=== PATIENT | female | born 1935 | race Caucasian/White ===

== ENCOUNTER 2017-08-28 13:51 | Inpatient (IN) | payer MEDICARE, BC ==
[~2017-08-28] VITALS: Ht 167.6 cm; Wt 41.6 kg
[~2017-08-28 13:51] MED LIST: ARIC10TA PO; ATOR10 PO; BLOOD PRESSURE PILL PO; FENT75DI TD; MACR100C PO; MORP10IN2 PO; PROZ20CA11 PO; SOMA350T PO; TOPR50TA PO
[2017-08-28 14:15] VITALS: BP 183/84; PULSE 53; RESP 14; TEMP 97.6; O2SAT 99
[2017-08-28] MEDS ORDERED: SODIUM CHLORIDE 0.9% FLUSH 10 ML FLUSH IVF PRN (14:15)
[2017-08-28 14:17] VITALS: O2SAT 98
[2017-08-28] MEDS ORDERED: FENT100D T-DERMAL (14:17)
[2017-08-28] MEDS ORDERED: SOMA350T PO (14:17)
[2017-08-28] MEDS ORDERED: FLUO20CA12 PO (14:17)
[2017-08-28] MEDS ORDERED: LOSA25TA PO (14:17)
[2017-08-28] MEDS ORDERED: ALPR0.5T3 PO (14:17)
[2017-08-28] MEDS ORDERED: MORP5SYR PO (14:17)
[2017-08-28] MEDS ORDERED: FENT75DI T-DERMAL (14:17)
--- NOTE | 2017-08-28 14:22 | PD ---
HPI Chief Complaint: syncope Time Seen by Provider: 13:58 Travel History International Travel<30 days: No Contact w/Intl Traveler<30days: No History of Present Illness HPI 82 y/o female presents by ambulance after she had a witnessed syncopal event with her daughter that was assisting her showering per the medics. She did not hit her head they state and the daughter said she was out for a couple minutes. When the ambulance team arrived on scene she was initially hypotensive but this improved with IV fluids. The patient had no complaints in route. The patient currently denies any complaints and history is limited from patient at this time. PFSH Past Medical History Arthritis: Yes Asthma: No Autoimmune Disease: No Blood Disorders: No Anxiety: Yes Depression: Yes Heart Rhythm Problems: No Cancer: No Cardiovascular Problems: Yes High Cholesterol: Yes Chemotherapy: No Chest Pain: No Congestive Heart Failure: No COPD: No Dementia: Yes Diabetes: No Diminished Hearing: No Endocrine: No Gastrointestinal Disorders: Yes (IRRITABLE BOWEL SYNDROME) GERD: No Glaucoma: Yes Genitourinary: Yes Headaches: Yes Hepatitis: No Hiatal Hernia: No Hypertension: Yes Immune Disorder: No Implanted Vascular Access Dvce: Yes Kidney Stones: Yes (HX OF ) Musculoskeletal: Yes (MULTIPLE BACK AND HIP SURGERIES) Neurologic: Yes Psychiatric: Yes Reproductive: Yes ([facility]ARDO) Respiratory: No Myocardial Infarction: No Radiation Therapy: No Renal Failure: No Seizures: Yes Sickle Cell Disease: No Sleep Apnea: No Thyroid Disease: No Ulcer: No Menopausal: Yes Past Surgical History AICD: No Appendectomy: No Arteriovenous Shunt: No Body Medical Devices: LEGALLY BLIND Cholecystectomy: No Eye Surgery: Yes (LEFT EYE SX AT 5YRS OLD) Gynecologic Surgery: Yes ([facility]ARDO) Hysterectomy: Yes Insulin Pump: No Joint Replacement: Yes (LEFT HIP WITH REVISIONS ) Neurologic Surgery: Yes (SEVERAL BACK SX) Pacemaker: No Other Surgery: Yes Family History Family Hypercholesterolemia: Yes Social History Alcohol Use: Yes (1 DRINK DAILY) Tobacco Use: No Substance Use: No Allergies-Medications (Allergen,Severity, Reaction): Coded Allergies: No Known Allergies (Verified Allergy, Unknown, 08/28/17) Reported Meds & Prescriptions Reported Meds & Active Scripts Active Reported Morphine 5 mg/5 ml-0.9% NaCl (Morphine Sulfate/0.9% NaCl/Pf) 5 Mg/5 Ml (1 Mg/Ml ) Syringe 15 Mg PO BID Fentanyl Patch 72 HR (Fentanyl) 75 Mcg/Hr Patch 25 Mcg T-DERMAL Q72H Remove old patch when new one placed. Losartan (Losartan Potassium) 25 Mg Tab 25 Mg PO DAILY Alprazolam 0.5 Mg Tab 0.5 Mg PO Q4H PRN Soma (Carisoprodol) 350 Mg Tab 350 Mg PO BID PRN Fluoxetine (Fluoxetine HCl) 20 Mg Capsule 40 Mg PO DAILY Review of Systems ROS Limitations: Poor Historian Except as stated in HPI: all other systems reviewed are Neg Physical Exam Exam Limitations: Poor Historian Narrative GENERAL: thin, well-developed patient. SKIN: Warm and dry. HEAD: Normocephalic and atraumatic. EYES: glass eye on left. ENT: No nasal drainage noted. NECK: Supple, trachea midline. Nttp in midline CARDIOVASCULAR: Regular rate and rhythm RESPIRATORY: Breath sounds equal bilaterally at apices. No accessory muscle use. GASTROINTESTINAL: Abdomen soft, non-tender, nondistended. EXTREMITIES: No edema. NEUROLOGICAL: Awake and alert. moves all extremities and sensory grossly within normal limits. Normal speech. equal grasp bilaterally Data Data Last Documented VS Vital Signs Date Time Temp Pulse Resp B/P (MAP) Pulse Ox O2 Delivery O2 Flow Rate FiO2 08/28/17 15:50 51 16 185/80 (115) 97 Room Air 08/28/17 14:15 97.6 Orders Orders Electrocardiogram (08/28/17 14:09) Complete Blood Count With Diff (08/28/17 14:09) Comprehensive Metabolic Panel (08/28/17 14:09) Magnesium (Mg) (08/28/17 14:09) Ckmb (Isoenzyme) Profile (08/28/17 14:09) Troponin I (08/28/17 14:09) Act Partial Throm Time (Ptt) (08/28/17 14:09) Prothrombin Time / Inr (Pt) (08/28/17 14:09) Urinalysis - C+S If Indicated (08/28/17 14:09) Chest, Single Ap (08/28/17 14:09) Ct Brain W/O Iv Contrast(Rout) (08/28/17 14:09) Ecg Monitoring (08/28/17 14:09) Iv Access Insert/Monitor (08/28/17 14:09) Oximetry (08/28/17 14:09) Sodium Chloride 0.9% Flush (Ns Flush) (08/28/17 14:15) CKMB (08/28/17 14:10) CKMB% (08/28/17 14:10) Aspirin (Aspirin) (08/28/17 16:00) Admit Order (Ed Use Only) (08/28/17 16:19) Labs Laboratory Tests Test 08/28/17 14:10 08/28/17 14:40 White Blood Count 13.1 TH/MM3 Red Blood Count 3.62 MIL/MM3 Hemoglobin 12.2 GM/DL Hematocrit 36.6 % Mean Corpuscular Volume 101.2 FL Mean Corpuscular Hemoglobin 33.6 PG Mean Corpuscular Hemoglobin Concent 33.2 % Red Cell Distribution Width 13.8 % Platelet Count 262 TH/MM3 Mean Platelet Volume 9.7 FL Neutrophils (%) (Auto) 66.1 % Lymphocytes (%) (Auto) 26.6 % Monocytes (%) (Auto) 6.1 % Eosinophils (%) (Auto) 0.4 % Basophils (%) (Auto) 0.8 % Neutrophils # (Auto) 8.7 TH/MM3 Lymphocytes # (Auto) 3.5 TH/MM3 Monocytes # (Auto) 0.8 TH/MM3 Eosinophils # (Auto) 0.1 TH/MM3 Basophils # (Auto) 0.1 TH/MM3 CBC Comment DIFF FINAL Differential Comment Prothrombin Time 11.8 SEC Prothromb Time International Ratio 1.1 RATIO Activated Partial Thromboplast Time 24.6 SEC Blood Urea Nitrogen 12 MG/DL Creatinine 0.62 MG/DL Random Glucose 125 MG/DL Total Protein 6.6 GM/DL Albumin 3.4 GM/DL Calcium Level 7.9 MG/DL Magnesium Level 1.8 MG/DL Alkaline Phosphatase 58 U/L Aspartate Amino Transf (AST/SGOT) 69 U/L Alanine Aminotransferase (ALT/SGPT) 14 U/L Total Bilirubin 0.3 MG/DL Sodium Level 140 MEQ/L Potassium Level 3.6 MEQ/L Chloride Level 105 MEQ/L Carbon Dioxide Level 23.9 MEQ/L Anion Gap 11 MEQ/L Estimat Glomerular Filtration Rate 92 ML/MIN Total Creatine Kinase 494 U/L Creatine Kinase MB 45.5 NG/ML Creatine Kinase MB % 9.2 % Troponin I 21.50 NG/ML Urine Color LIGHT-YELLOW Urine Turbidity HAZY Urine pH 7.0 Urine Specific [place] 1.008 Urine Protein NEG mg/dL Urine Glucose (UA) NEG mg/dL Urine Ketones NEG mg/dL Urine Occult Blood NEG Urine Nitrite NEG Urine Bilirubin NEG Urine Urobilinogen LESS THAN 2.0 MG/DL Urine Leukocyte Esterase MOD Urine RBC LESS THAN 1 /hpf Urine WBC 1 /hpf Urine Mucus FEW /lpf Microscopic Urinalysis Comment CULT NOT INDICATED MDM Medical Decision Making Medical Screen Exam Complete: Yes Emergency Medical Condition: Yes Medical Record Reviewed: Yes (pmh confirmed) Interpretation(s) CBC & BMP Diagram 08/28/17 14:10 Total Protein 6.6, Albumin 3.4, Calcium Level 7.9 L, Magnesium Level 1.8, Alkaline Phosphatase 58, Aspartate Amino Transf (AST/SGOT) 69 H, Alanine Aminotransferase (ALT/SGPT) 14, Total Bilirubin 0.3 Last [address] 08/28/17 1409 Signed Impressions: Service Date/Time: Monday, August 28, 2017 14:29 - CONCLUSION: 1. No acute intracranial abnormality. 2. 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 3. 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 4. Senescent changes. James Schreiber MD Chest X-Ray 08/28/17 1409 Signed Impressions: Service Date/Time: Monday, August 28, 2017 14:56 - CONCLUSION: 1. No acute abnormality or significant interval change. James Schreiber MD troponin with significant elevation at 21.5 noted EKG with underlying artifact but no STEMI criteria, sinus bradycardia 54 Differential Diagnosis anemia, renal failure, vasovagal, uti, intracranial.... Narrative Course will check labs and imaging and reevaluate Patient's 2 daughters are here and state that patient has significant advanced dementia and they help take care of her. One daughter is the power of [employer] ground crew supervisor. She states that after lengthy discussion as of now she would like to keep her full code and admitted her to the hospital. In terms of procedure she states she wants to talk to the heart doctor to figure out if to do the intervention or not. She does not want to talk with hospice at this time. She was updated about all results and all questions answered at length. Patient will be given aspirin, no chest pain now heparin drip started after discussion with industrial cleaner, will place in cic Critical Care Narrative Aggregate critical care time was 31 minutes. Time to perform other separately billable procedures was not included in the critical care time. My time did not include minutes spent treating any other patients simultaneously or on activities that did not directly contribute to the patient's treatment. The services I provided to this patient were to treat and/or prevent clinically significant deterioration that could result in: mi, shock, I provided critical care services requiring my management, as noted below: Chart data review, documentation time, medication orders and management, vital sign assessments/reviewing monitor data, ordering and reviewing lab tests, ordering and interpreting/reviewing x-rays and diagnostic studies, care of the patient and discussion of the patient with the admitting physicians. Physician Communication Physician Communication dr robles will see patient dr bee agrees to admit dr robles after discussion with family states place on heparin drip no bolus and can eat Diagnosis Primary Impression: NSTEMI (non-ST elevation myocardial infarction) Additional Impression: Syncope Qualified Codes: R55 - Syncope and collapse Admitting Information Admitting Physician Requests: Admit Gris Perez MD Aug 28, 2017 14:22
--- NOTE | 2017-08-28 14:48 | RADRPT ---
EXAM DATE/TIME: 08/28/2017 14:29 [facility] COMPARISON: CT BRAIN W/O CONTRAST, April 18, 2014, 0:53. INDICATIONS : Syncope episode. RADIATION DOSE: 33.06 CTDIvol (mGy) MEDICAL HISTORY : Dementia. Seizures. Cardiovascular diseasehypertensiom SURGICAL HISTORY : Hysterectomy. ENCOUNTER: Initial ACUITY: 1 day PAIN SCALE: 0/10 LOCATION: cranial TECHNIQUE: Multiple contiguous axial images were obtained of the head. Using automated exposure control and adj ustment of the mA and/or kV according to patient size, radiation dose was kept as low as reasonably a chievable to obtain optimal diagnostic quality images. DICOM format image data is available electro nically for review and comparison. FINDINGS: CEREBRUM: Diffuse moderate cerebral atrophy. Encephalomalacia in the anterior and posterior parietal mid convex ities as well as redemonstration of encephalomalacia in the medial posterior occipital mid convexiti es. The ventricles are normal for degree of atrophy. No evidence of midline shift, mass lesion, hemo rrhage or acute infarction. No extra-axial fluid collections are seen. POSTERIOR FOSSA: The cerebellum and brainstem are intact. The 4th ventricle is midline. The cerebellopontine angle i s unremarkable. EXTRACRANIAL: The visualized portion of the orbits is intact. Redemonstration of apparent left eye enucleation. SKULL: The calvaria is intact. No evidence of skull fracture. CONCLUSION: 1. No acute intracranial abnormality. 2. 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 3. 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 4. Senescent changes. James Schreiber MD on August 28, 2017 at 14:41 Board Certified Radiologist. This report was verified electronically.
[2017-08-28 14:52] LABS: AUTOMATED NEUTROPHIL # 8.7 TH/MM3 (1.8-7.7); BASOPHIL # 0.1 TH/MM3 (0-0.2); BASOPHIL % 0.8 % (0.0-2.0); EOSINOPHIL # 0.1 TH/MM3 (0-0.4); EOSINOPHIL % 0.4 % (0.0-4.0); HEMATOCRIT 36.6 % (35.0-46.0); HEMO FLAGS DIFF FINAL; LYMPH % 26.6 % (9.0-44.0); LYMPHOCYTE # 3.5 TH/MM3 (1.0-4.8); MEAN CELL VOLUME 101.2 FL (80.0-100.0); MEAN CORPUSCULAR HEMOGLOBIN 33.6 PG (27.0-34.0); MEAN CORPUSCULAR HGB CONC 33.2 % (32.0-36.0); MONO % 6.1 % (0.0-8.0); NEUT % 66.1 % (16.0-70.0); PLATELET COUNT 262 TH/MM3 (150-450); RED BLOOD COUNT 3.62 MIL/MM3 (4.00-5.30); RED CELL DISTRIBUTION WIDTH 13.8 % (11.6-17.2); WHITE BLOOD COUNT 13.1 TH/MM3 (4.0-11.0)
[2017-08-28 14:55] LABS: APTT (PATIENT) 24.6 SEC (24.3-30.1); INTERNATIONAL NORMALIZED RATIO 1.1 RATIO; PROTHROMBIN TIME - PATIENT 11.8 SEC (9.8-11.6)
[2017-08-28 15:09] LABS: ANION GAP 11 MEQ/L (5-15); AST (GOT) 69 U/L (15-37); BICARBONATE 23.9 MEQ/L (21.0-32.0); BLOOD UREA NITROGEN 12 MG/DL (7-18); CHLORIDE 105 MEQ/L (98-107); GLOMERULAR FILTRATION RATE 92 ML/MIN (>89); MAGNESIUM 1.8 MG/DL (1.5-2.5); POTASSIUM 3.6 MEQ/L (3.5-5.1); SODIUM (NA) 140 MEQ/L (136-145)
[2017-08-28 15:11] LABS: ALT (GPT) 14 U/L (10-53)
[2017-08-28 15:15] LABS: ALKALINE PHOSPHATASE 58 U/L (45-117); CREATINE KINASE 494 U/L (26-192); TOTAL BILIRUBIN ADULT 0.3 MG/DL (0.2-1.0)
--- NOTE | 2017-08-28 15:16 | RADRPT ---
EXAM DATE/TIME: 08/28/2017 14:56 [facility] COMPARISON: CHEST SINGLE AP, April 18, 2014, 0:11. INDICATIONS : Syncopal episode today, short of breath, weakness MEDICAL HISTORY : None. SURGICAL HISTORY : back surgery , fusion ENCOUNTER: Initial ACUITY: 1 day PAIN SCORE: 2/10 LOCATION: Bilateral chest FINDINGS: A single view of the chest demonstrates the lungs to be symmetrically aerated without evidence of mas s, infiltrate or effusion. The cardiomediastinal contours are unremarkable. Lumbar fixation hardware in place with probable neural stimulator. Osseous structures are grossly intact. CONCLUSION: 1. No acute abnormality or significant interval change. James Schreiber MD on August 28, 2017 at 15:13 Board Certified Radiologist. This report was verified electronically.
[2017-08-28 15:28] LABS: BLOOD, URINE NEG (NEG); COMMENT (UR) CULT NOT INDICATED; CULTURE IF INDICATED CULT NOT INDICATED; GLUCOSE,URINE NEG (NEG); KETONE, URINE NEG (NEG); MUCUS URINE FEW /lpf (OCC); NITRITE,URINE NEG (NEG); URINE COLOR LIGHT-YELLOW (YELLW/STRAW)
[2017-08-28 15:30] LABS: CKMB 45.5 NG/ML (0.5-3.6)
[2017-08-28 15:50] VITALS: BP 185/80; PULSE 51; RESP 16; O2SAT 97
[2017-08-28] MEDS ORDERED: ASPIRIN 325 MG TAB PO ONE (16:00)
[2017-08-28 17:24] VITALS: BP 172/77; PULSE 54; RESP 14; O2SAT 98
[2017-08-28] MEDS: SODIUM CHLOR 0.9% 1000 ML INJ 1,000 ML IV SCH (18:00)
[2017-08-28] MEDS ORDERED: MORPHINE SULFATE 4 MG/ML INJ IV PUSH PRN ×4 (18:00)
[2017-08-28] MEDS ORDERED: BISACODYL 10 MG SUPP RECTAL PRN (18:00)
[2017-08-28] MEDS ORDERED: oxyCODONE/ACETAMINOPHEN 5 MG/325 MG TAB PO PRN (18:00)
[2017-08-28] MEDS ORDERED: NALOXONE HCL 0.4 MG/ML AMP IV PUSH PRN (18:00)
[2017-08-28] MEDS ORDERED: MAGNESIUM HYDROXIDE SUSP 30 ML CUP PO PRN (18:00)
[2017-08-28] MEDS ORDERED: ALPRAZolam 0.5 MG TAB PO PRN (18:00)
[2017-08-28] MEDS ORDERED: ONDANSETRON HCL 4 MG/2 ML VIAL IVP PRN (18:00)
[2017-08-28] MEDS ORDERED: SODIUM CHLORIDE 0.9% FLUSH 10 ML FLUSH IV FLUSH PRN (18:00)
[2017-08-28] MEDS ORDERED: oxyCODONE/ACETAMINOPHEN 10 MG/325 MG TAB PO PRN (18:00)
[2017-08-28] MEDS ORDERED: ACETAMINOPHEN 325 MG TAB PO PRN ×2 (18:00)
[2017-08-28] MEDS ORDERED: SENNOSIDES 8.6 MG TAB PO PRN (18:00)
[2017-08-28] MEDS ORDERED: PROCHLORPERAZINE 25 MG SUPP RECTAL PRN (18:00)
[2017-08-28] MEDS ORDERED: LACTULOSE SYRUP 20 GM/30 ML CUP PO PRN (18:00)
[2017-08-28 18:12] LABS: APTT (PATIENT) 27.6 SEC (24.3-30.1)
--- NOTE | 2017-08-28 18:18 | HHI.HP ---
[facility] Primary Care Physician Kevin Bowles DO Admission Diagnosis NSTEMI Diagnoses: (1) NSTEMI (non-ST elevation myocardial infarction) Diagnosis: Principal (2) Syncope Diagnosis: Principal (3) Back pain, chronic Diagnosis: Secondary (4) Alzheimer's dementia Diagnosis: Principal (5) Anxiety Diagnosis: Secondary (6) Depression Diagnosis: Secondary Chief Complaint: Syncope Travel History International Travel<30 Days: No Contact w/Intl Traveler <30 Da: No Traveled to Known Affected Are: No History of Present Illness Patient is an 82-year-old female who presented by ambulance after she had a witnessed syncopal episode while her daughter was trying to assist her while showering today. Patient did not hit her head and the daughter states she was out for a couple minutes possibly. When EMS team arrived on the scene she was initially hypotensive but this improved with IV fluids. Patient has no complaints on bruit. Patient denies any complaints in the room with the ER physician. Patient was found to have a quite elevated troponin at 21 Patient remains a full code at this time Cardiology has only wanted a heparin drip at this time and no aggressive cardiac treatment Will be placed in [facility] Review of Systems Constitutional: COMPLAINS OF: Weight loss, DENIES: Diaphoretic episodes, Fatigue, Fever, Weight gain, Chills, Dizziness, Change in appetite, Night Sweats Endocrine: DENIES: Abnorml menstrual pattern, Heat/cold intolerance, Polydipsia , Polyuria Eyes: DENIES: Blurred vision, Diplopia, Eye inflammation, Eye pain, Vision loss , Photosensitivity (left eye enucleation) Ears, nose, mouth, throat: DENIES: Tinnitus, Hearing loss, Vertigo, Nasal discharge Respiratory: DENIES: Apneas, Cough, Snoring, Wheezing, Hemoptysis Cardiovascular: COMPLAINS OF: Syncope, DENIES: Chest pain, Palpitations, Dyspnea on Exertion Gastrointestinal: DENIES: Abdominal pain, Black stools, Bloody stools Musculoskeletal: COMPLAINS OF: Joint pain, Back pain, Neck pain, DENIES: Muscle aches, Stiffness, Joint Swelling Integumentary: DENIES: Abnormal pigmentation, Pruritus, Rash Hematologic/lymphatic: DENIES: Bruising, Lymphadenopathy Immunologic/allergic: DENIES: Eczema Neurologic: COMPLAINS OF: Abnormal gait, Localized weakness, Poor Balance, DENIES: Headache, Paresthesias, Seizures, Tremor Psychiatric: COMPLAINS OF: Anxiety, Confusion, Depression, Agitation, DENIES: Mood changes Except as stated in HPI: all other systems reviewed are Neg Past Family Social History Past Medical History Osteoarthritis severe Anxiety Depression High cholesterol Advanced dementia Irritable bowel Alzheimer's dementia Glaucoma Chronic headaches Chronic urinary issues Hypertension History of kidney stones History of multiple back and hip surgeries History of total abdominal hysterectomy Past Surgical History Legally blind Left eye surgery at 5 years old enucleation Total abdominal hysterectomy Left hip surgery with multiple revisions Several back surgeries up to 14 Reported Medications Reported Meds & Active Scripts Active Reported Morphine 5 mg/5 ml-0.9% NaCl (Morphine Sulfate/0.9% NaCl/Pf) 5 Mg/5 Ml (1 Mg/Ml ) Syringe 15 Mg PO BID Fentanyl Patch 72 HR (Fentanyl) 75 Mcg/Hr Patch 25 Mcg T-DERMAL Q72H Remove old patch when new one placed. Losartan (Losartan Potassium) 25 Mg Tab 25 Mg PO DAILY Alprazolam 0.5 Mg Tab 0.5 Mg PO Q4H PRN Soma (Carisoprodol) 350 Mg Tab 350 Mg PO BID PRN Fluoxetine (Fluoxetine HCl) 20 Mg Capsule 40 Mg PO DAILY Allergies: Coded Allergies: No Known Allergies (Verified Allergy, Unknown, 08/28/17) Active Ordered Medications Current Medications Sodium Chloride (NS Flush) 2 ml UNSCH PRN IVF FLUSH AFTER USING IV ACCESS; Start 08/28/17 at 14:15 Aspirin (Aspirin) 325 mg ONCE ONCE PO Last administered on 08/28/17t 15:54; Start 08/28/17 at 16:00; Stop 08/28/17 at 16:01; Status DC Heparin Sodium (Porcine) (Heparin Inj) 5,000 units UNSCH PRN IV APTT LESS THAN 25; Start 08/28/17 at 23:15 Heparin Sodium (Porcine) (Heparin Inj) 2,500 units UNSCH PRN IV APTT 25 TO 39; Start 08/28/17 at 23:15 Heparin Sodium/ Dextrose 250 ml @ 10 mls/hr TITRATE PRN IV Coagulation Management; Start 08/28/17 at 17:15 Alprazolam (Xanax) 0.5 mg Q4H PRN PO ANXIETY; Start 08/28/17 at 18:00; Status UNV Carisoprodol (Soma) 350 mg BID PRN PO PAIN; Start 08/28/17 at 18:00; Status UNV Fentanyl (Duragesic 75 Mcg Patch.72 Hr) 1 patch Q72H T-DERMAL ; Start at 18:00; Status UNV Fluoxetine HCl (PROzac) 40 mg DAILY PO ; Start 08/29/17 at 09:00; Status UNV Losartan Potassium (Cozaar) 25 mg DAILY PO ; Start 08/29/17 at 09:00; Status UNV Non-Formulary Medication 15 mg BID PO ; Start 08/28/17 at 21:00; Status UNV Sodium Chloride 1,000 ml @ 100 mls/hr Q10H IV ; Start 08/28/17 at 17:48; Status UNV Sodium Chloride (NS Flush) 2 ml UNSCH PRN IV FLUSH FLUSH AFTER USING IV ACCESS ; Start 08/28/17 at 18:00; Status UNV Sodium Chloride (NS Flush) 2 ml BID IV FLUSH ; Start 08/28/17 at 21:00; Status UNV Acetaminophen (Tylenol) 650 mg Q4H PRN PO TEMP > 100.4; Start 08/28/17 at 18: 00; Status UNV Ondansetron HCl (Zofran Inj) 4 mg Q6H PRN IVP NAUSEA OR VOMITING; Start at 18:00; Status UNV Prochlorperazine (Compazine Supp) 25 mg Q12H PRN SC NAUSEA OR VOMITING; Start 08/28/17 at 18:00; Status UNV Acetaminophen (Tylenol) 650 mg Q6H PRN PO PAIN SCALE 1 TO 2; Start 08/28/17 at 18:00; Status UNV Oxycodone/ Acetaminophen (Percocet 5-325 Mg) 1 tab Q6H PRN PO PAIN SCALE 3 TO 5; Start 08/28/17 at 18:00; Status UNV Oxycodone/ Acetaminophen (Percocet 10-325 Mg) 1 tab Q6H PRN PO PAIN SCALE 6 TO 10; Start 08/28/17 at 18:00; Status UNV Morphine Sulfate (Morphine Inj) 2 mg Q3H PRN IV PUSH Pain 3-5; if unable to take PO; Start 08/28/17 at 18:00; Status UNV Morphine Sulfate (Morphine Inj) 4 mg Q3H PRN IV PUSH Pain 6-10;if unable to take PO; Start 08/28/17 at 18:00; Status UNV Morphine Sulfate (Morphine Inj) 4 mg Q1H PRN IV PUSH PAIN SCALE 7-10 ( INTRACTABLE); Start 08/28/17 at 18:00; Status UNV Morphine Sulfate (Morphine Inj) 4 mg Q3H PRN IV PUSH BREAKTHROUGH PAIN; Start 08/28/17 at 18:00; Status UNV Naloxone HCl (Narcan Inj) 0.4 mg UNSCH PRN IV PUSH SEE LABEL COMMENTS; Start 08/28/17 at 18:00; Status UNV Senna/Docusate Sodium (Ginger-Colace) 1 tab BID PO ; Start 08/28/17 at 21:00; Status UNV Magnesium Hydroxide (Milk Of Magnesia Liq) 30 ml Q12H PRN PO Mild constipation ; Start 08/28/17 at 18:00; Status UNV Sennosides (Senokot) 17.2 mg Q12H PRN PO Moderate constipation; Start at 18:00; Status UNV Bisacodyl (Dulcolax Supp) 10 mg DAILY PRN RECTAL SEVERE CONSITIPATION; Start 08/28/17 at 18:00; Status UNV Lactulose (Lactulose Liq) 30 ml DAILY PRN PO SEVERE CONSITIPATION; Start 08/28 at 18:00; Status UNV Family History Hypercholesterolemia Social History 1 alcoholic beverage daily Denies tobacco denies illicits Lives with daughter Physical Exam Vital Signs Vital Signs Date Time Temp Pulse Resp B/P (MAP) Pulse Ox O2 Delivery O2 Flow Rate FiO2 08/28/17 17:24 54 14 172/77 (108) 98 Room Air 08/28/17 15:50 51 16 185/80 (115) 97 Room Air 08/28/17 14:17 98 Room Air 08/28/17 14:15 97.6 53 14 183/84 (117) 99 Physical Exam GENERAL: This is a very thin cachectic patient in no apparent distress. And confused SKIN: No rashes, ecchymoses or lesions. Cool and dry. HEAD: Atraumatic. Normocephalic. No temporal or scalp tenderness. EYES: Pupils equal round and reactive. Extraocular motions intact. No scleral icterus. No injection or drainage. Left eye enucleation right eye disconjugate ENT: Nose without bleeding, purulent drainage or septal hematoma. Throat without erythema, tonsillar hypertrophy or exudate. Uvula midline. Airway patent. NECK: Trachea midline. No JVD or lymphadenopathy. Supple, nontender, no meningeal signs. CARDIOVASCULAR: Regular rate and rhythm without murmurs, gallops, or rubs. S1 and S2 no S3 or S4 no heave or thrill or rub or gallop RESPIRATORY: Clear to auscultation. Breath sounds equal bilaterally. No wheezes , rales, or rhonchi. GASTROINTESTINAL: Abdomen soft, non-tender, nondistended. No hepato-splenomegaly , or palpable masses. No guarding. MUSCULOSKELETAL: Extremities without clubbing, cyanosis, or edema. No joint tenderness, effusion, or edema noted. No calf tenderness. Negative Homans sign bilaterally. NEUROLOGICAL: Awake and alert and confused. Cranial nerves II through XII intact. Motor and sensory grossly within normal limits. 4 out of 5 muscle strength in all muscle groups. Limited speech. Insight and judgment is limited Mood and behavior is inappropriate Laboratory Laboratory Tests Test 08/28/17 14:10 08/28/17 14:40 08/28/17 17:45 White Blood Count 13.1 Red Blood Count 3.62 Hemoglobin 12.2 Hematocrit 36.6 Mean Corpuscular Volume 101.2 Mean Corpuscular Hemoglobin 33.6 Mean Corpuscular Hemoglobin Concent 33.2 Red Cell Distribution Width 13.8 Platelet Count 262 Mean Platelet Volume 9.7 Neutrophils (%) (Auto) 66.1 Lymphocytes (%) (Auto) 26.6 Monocytes (%) (Auto) 6.1 Eosinophils (%) (Auto) 0.4 Basophils (%) (Auto) 0.8 Neutrophils # (Auto) 8.7 Lymphocytes # (Auto) 3.5 Monocytes # (Auto) 0.8 Eosinophils # (Auto) 0.1 Basophils # (Auto) 0.1 CBC Comment DIFF FINAL Differential Comment Prothrombin Time 11.8 Prothromb Time International Ratio 1.1 Activated Partial Thromboplast Time 24.6 Blood Urea Nitrogen 12 Creatinine 0.62 Random Glucose 125 Total Protein 6.6 Albumin 3.4 Calcium Level 7.9 Magnesium Level 1.8 Alkaline Phosphatase 58 Aspartate Amino Transf (AST/SGOT) 69 Alanine Aminotransferase (ALT/SGPT) 14 Total Bilirubin 0.3 Sodium Level 140 Potassium Level 3.6 Chloride Level 105 Carbon Dioxide Level 23.9 Anion Gap 11 Estimat Glomerular Filtration Rate 92 Total Creatine Kinase 494 Creatine Kinase MB 45.5 Creatine Kinase MB % 9.2 Troponin I 21.50 Urine Color LIGHT-YELLOW Urine Turbidity HAZY Urine pH 7.0 Urine Specific [place] 1.008 Urine Protein NEG Urine Glucose (UA) NEG Urine Ketones NEG Urine Occult Blood NEG Urine Nitrite NEG Urine Bilirubin NEG Urine Urobilinogen LESS THAN 2.0 Urine Leukocyte Esterase MOD Urine RBC LESS THAN 1 Urine WBC 1 Urine Mucus FEW Microscopic Urinalysis Comment CULT NOT INDICATED Result Diagram: 08/28/17 1410 08/28/17 141 Imaging Last Impressions Head CT 08/28/17 140 Signed Impressions: Service Date/Time: Monday, August 28, 2017 14:29 - CONCLUSION: 1. No acute intracranial abnormality. 2. 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 3. 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 4. Senescent changes. James Schreiber MD Chest X-Ray 08/28/17 140 Signed Impressions: Service Date/Time: Monday, August 28, 2017 14:56 - CONCLUSION: 1. No acute abnormality or significant interval change. MD Harlan Torres VTE Risk Assessment Caprini VTE Risk Assessment: Mod/High Risk (score >= 2) Caprini Risk Assessment Model Point Value = 1 Point Value = 2 Point Value = 3 Point Value = 5 Age 41-60 Minor surgery BMI > 25 kg/m2 Swollen legs Varicose veins or History of unexplained or recurrent spontaneous Oral contraceptives or hormone replacement Sepsis (< 1 month) Serious lung disease, including pneumonia (< 1 month) Abnormal pulmonary function Acute myocardial infarction Congestive heart failure (< 1 month) History of inflammatory bowel disease Medical patient at bed rest Age 61-74 Arthroscopic surgery Major open surgery (> 45 min) Laparoscopic surgery (> 45 min) Malignancy Confined to bed (> 72 hours) Immobilizing plaster cast Central venous access Age >= 75 History of VTE Family history of VTE Factor V Leiden Prothrombin [id number] Lupus anticoagulant Anticardiolipin antibodies Elevated serum homocysteine Heparin-induced thrombocytopenia Other congenital or acquired thrombophilia Stroke (< 1 month) Elective arthroplasty Hip, pelvis, or leg fracture Acute spinal cord injury (< 1 month) Prophylaxis Regimen Total Risk Factor Score Risk Level Prophylaxis Regimen 0-1 Low Early ambulation 2 Moderate Order ONE of the following: *Sequential Compression Device (SCD) *Heparin 5000 units SQ BID 3-4 Higher Order ONE of the following medications: *Heparin 5000 units SQ TID *Enoxaparin/Lovenox 40 mg SQ daily (WT < 150 kg, CrCl > 30 mL/min) *Enoxaparin/Lovenox 30 mg SQ daily (WT < 150 kg, CrCl > 10-29 mL/min) *Enoxaparin/Lovenox 30 mg SQ BID (WT < 150 kg, CrCl > 30 mL/min) AND/OR *Sequential Compression Device (SCD) 5 or more Highest Order ONE of the following medications: *Heparin 5000 units SQ TID (Preferred with Epidurals) *Enoxaparin/Lovenox 40 mg SQ daily (WT < 150 kg, CrCl > 30 mL/min) *Enoxaparin/Lovenox 30 mg SQ daily (WT < 150 kg, CrCl > 10-29 mL/min) *Enoxaparin/Lovenox 30 mg SQ BID (WT < 150 kg, CrCl > 30 mL/min) AND *Sequential Compression Device (SCD) Assessment and Plan Assessment and Plan NSTEMI WITH ELEVATED TROPONIN OF 21- PER CARDIOLOGY MEDICAL MANAGEMENT AND CONTINUE HEPARIN DRIP SYNCOPE CONSULT CARDIO- ECHO AND PT AND OT DEMENTIA HOME MEDS CHRONIC PAIN CONTINUE HOME MEDS AND IV PAIN CONTROL AND MUSCLE RELAXERS ANXIETY AND DEPRESSION CONTINUE HOME MEDICATIONS CONSULT PALLIATIVE CARE CONSULT CASE MANAGEMENT CONSULT PT AND OT POSSIBLE HOSPICE CANDIDATE IN THE FUTURE LONG DISCUSSION WITH POA DAUGHTER- STILL WANTS FULL CODE Code Status FULL CODE Discussed Condition With PATIENT AND RN AND FAMILY AND POA AND ER PHYSICIAN Physician Certification 2 Midnight Certification Type: Admission for Inpatient Services Order for Inpatient Services The services are ordered in accordance with Medicare regulations or non- Medicare payer requirements, as applicable. In the case of services not specified as inpatient-only, they are appropriately provided as inpatient services in accordance with the 2-midnight benchmark. Estimated LOS (days): 3 3 days is the estimated time the patient will need to remain in the hospital, assuming treatment plan goals are met and no additional complications. Post-Hospital Plan: Not yet determined Problem Qualifiers (1) Syncope: Qualified Codes: R55 - Syncope and collapse Oseas oDn DO Aug 28, 2017 18:18
[2017-08-28] MEDS: HEPARIN-D5W 25,000 U/250 ML 250 ML IV PRN (18:34)
[2017-08-28 18:37] VITALS: BP 171/70; PULSE 52; RESP 16; O2SAT 98
[2017-08-28 20:00] VITALS: BP 144/79; PULSE 52; PULSE 65; RESP 20; TEMP 98.7; O2SAT 97
[2017-08-28] MEDS ORDERED: fentaNYL 75 MCG/HR PATCH T-DERMAL SCH (20:00)
[2017-08-28] MEDS ORDERED: REMOVE OLD DURAGESIC (FENTANYL) PATCH T-DERMAL SCH (20:00)
[2017-08-28] MEDS ORDERED: [UNRECOGNIZED DRUG - OTHER] PO SCH (21:00)
[2017-08-28] MEDS ORDERED: MORPHINE SULFATE PO SCH (21:00)
[2017-08-28] MEDS: DOCUSATE SODIUM 50 MG/SENNA 8.6 MG TAB PO SCH (22:31)
[2017-08-28] MEDS: SODIUM CHLORIDE 0.9% FLUSH 10 ML FLUSH IV FLUSH SCH (22:31)
[2017-08-28] MEDS: MORPHINE SULFATE 15 MG CONTROLLED RELEASE TAB PO SCH (22:31)
[2017-08-28] MEDS ORDERED: HEPARIN SODIUM - IV 10,000 UNITS/10 ML VIAL IV PRN ×2 (23:15)
[2017-08-28 23:22] LABS: CKMB 25.6 NG/ML (0.5-3.6)
[2017-08-29] VITALS (23 sets, daily range): BP systolic 106–138; BP diastolic 56–79; PULSE 61–82; RESP 18–20; TEMP 97.9–98.6; O2SAT 96–98
[2017-08-29 01:37] LABS: APTT (PATIENT) 142.4 SEC (24.3-30.1)
[2017-08-29 03:06] LABS: AUTOMATED NEUTROPHIL # 5.1 TH/MM3 (1.8-7.7); BASOPHIL # 0.1 TH/MM3 (0-0.2); BASOPHIL % 0.7 % (0.0-2.0); EOSINOPHIL % 0.3 % (0.0-4.0); HEMATOCRIT 33.7 % (35.0-46.0); HEMO FLAGS DIFF FINAL; LYMPH % 36.4 % (9.0-44.0); LYMPHOCYTE # 3.3 TH/MM3 (1.0-4.8); MEAN CELL VOLUME 98.9 FL (80.0-100.0); MEAN CORPUSCULAR HEMOGLOBIN 33.1 PG (27.0-34.0); MEAN CORPUSCULAR HGB CONC 33.5 % (32.0-36.0); MONO % 6.7 % (0.0-8.0); NEUT % 55.9 % (16.0-70.0); PLATELET COUNT 239 TH/MM3 (150-450); RED BLOOD COUNT 3.41 MIL/MM3 (4.00-5.30); RED CELL DISTRIBUTION WIDTH 13.2 % (11.6-17.2); WHITE BLOOD COUNT 9.2 TH/MM3 (4.0-11.0)
[2017-08-29 03:31] LABS: ALT (GPT) 18 U/L (10-53); ANION GAP 7 MEQ/L (5-15); AST (GOT) 46 U/L (15-37); BICARBONATE 30.4 MEQ/L (21.0-32.0); BLOOD UREA NITROGEN 11 MG/DL (7-18); CHLORIDE 104 MEQ/L (98-107); GLOMERULAR FILTRATION RATE 127 ML/MIN (>89); MAGNESIUM 1.9 MG/DL (1.5-2.5); SODIUM (NA) 141 MEQ/L (136-145)
[2017-08-29 03:32] LABS: APTT (PATIENT) 77.7 SEC (24.3-30.1)
[2017-08-29 03:39] LABS: ALKALINE PHOSPHATASE 64 U/L (45-117); CREATINE KINASE 245 U/L (26-192); FREE T4 0.84 NG/DL (0.76-1.46); TOTAL BILIRUBIN ADULT 0.4 MG/DL (0.2-1.0)
[2017-08-29 03:55] LABS: CKMB 16.6 NG/ML (0.5-3.6)
--- NOTE | 2017-08-29 06:46 | MB ---
cc: RENE JACOBS DO DATE OF CONSULTATION August 28, 2017 REASON FOR CONSULTATION Syncope. NSTEMI. HISTORY OF PRESENT ILLNESS Neha Hardin is a pleasantly demented 82-year-old female who presented to [facility] by EMS on August 28, 2017, after a syncopal episode. Her daughter was assisting her while in the shower and trying to clean her off when she started not feeling well. She sat down and then slumped over. At that time her daughter was unable to arouse her and so she should called 9-1-1. She was unsure if she was breathing at that time and she appeared to be drooling. She was finally able to wake her up around 5 minutes later. Upon EMS arrival, the patient was hypotensive but this improved with IV fluids. In seeing her in the emergency room she is currently hemodynamically stable and denies any symptoms. PAST MEDICAL HISTORY 1. Osteoarthritis. 2. Anxiety. 3. Depression. 4. Hyperlipidemia. 5. Advanced dementia. 6. Irritable bowel syndrome. 7. Alzheimer's dementia. 8. Glaucoma. 9. Hypertension. PAST SURGICAL HISTORY 1. Left eye surgery. 2. Total abdominal hysterectomy. 3. Left hip surgery with multiple revisions. 4. Several back surgeries. ALLERGIES No known drug allergies. MEDICATIONS 1. Soma 350 mg b.i.d. as needed for pain. 2. Losartan 25 mg daily. 3. Fentanyl 25 mcg patch. 4. Morphine 15 mg b.i.d. 5. Duloxetine 40 mg daily. 6. Xanax 0.5 mg every 4 hours as needed for anxiety. FAMILY HISTORY Denies premature coronary artery disease or sudden cardiac within the family. SOCIAL HISTORY Denies tobacco or drug abuse. Does drink one alcoholic drink a day. Currently lives with her daughter. REVIEW OF SYSTEMS 14-systems were reviewed including osteopathic pertinent positives and negatives above, otherwise negative. PHYSICAL EXAMINATION VITAL SIGNS: Temperature 97.6, heart rate 53, blood pressure 183/84, respirations 18, pulse ox 99% on room air. IN GENERAL: The patient is alert and awake, pleasantly demented. HEENT: Pupils are equal, round and reactive. Mucous membranes moist. NECK: Supple. No JVD at 45 degrees. No carotid bruits heard bilaterally. Carotid upstroke is brisk in nature. HEART: Regular rate and rhythm. Positive first and second heart sounds with no noted murmurs, gallops or rubs. LUNGS: Clear to auscultation bilaterally. No wheezes, rubs or rhonchi. ABDOMEN: Soft, nontender, nondistended. No organomegaly noted. EXTREMITIES: No clubbing, cyanosis or edema. Femoral and distal pulses intact bilaterally. NEUROLOGICALLY: No focal deficits. SKIN: Warm, dry and intact. OSTEOPATHIC: Mild kyphoscoliosis. No lordosis or paraspinal tender points. LABORATORY FINDINGS Hemoglobin 12.2, hematocrit 36.6, platelets 262, potassium 3.6, BUN 12, creatinine 0.62. Troponin 21.5. ELECTROCARDIOGRAM (August 28, 2017, at 14:22) Sinus bradycardia, nonspecific ST-T wave changes. IMPRESSION 1. NSTEMI. 2. Syncopal episode. 3. Advanced dementia. 4. Hyperlipidemia. RECOMMENDATIONS 1. Ms. Hardin presented with syncopal episode and was found to have an elevated troponin. 1. My overall concern with her is that during the episodes she was extremely hypotensive and the daughter was unsure if she was breathing. 2. She is currently hemodynamically stable and without chest pain. I had a long discussion with both her daughters (one of them being her POA) about medical management versus invasive route including cardiac catheterization. After discussing the risks, benefits and alternatives, the daughters agreed that we would try to treat her medically as best as possible due to her age and overall comorbidities with her dementia. 3. She does have accelerated hypertension and we will attempt to place her on medications to lower this, although carefully with her syncopal episode. 4. We will check a 2-D echo to look at her overall left ventricular function, cardiac structure and possible valvopathies. 5. Further recommendations will be made based on the hospital course. Thank you for allowing me to see Neha Hardin. If you have any questions, please do not hesitate to call. Rene Jacobs DO VGP/SSB /12:45 AM /6:31 AM [email or web address]
[2017-08-29] MEDS: LOSARTAN 25 MG TAB PO SCH (08:20)
[2017-08-29] MEDS: ASPIRIN 81 MG CHEW TAB CHEW SCH (08:21)
[2017-08-29] MEDS: MORPHINE SULFATE 15 MG CONTROLLED RELEASE TAB PO SCH ×2 (08:21→20:51)
[2017-08-29] MEDS: DOCUSATE SODIUM 50 MG/SENNA 8.6 MG TAB PO SCH ×2 (08:22→20:51)
[2017-08-29] MEDS: amLODIPine BESYLATE 5 MG TAB PO SCH (08:22)
[2017-08-29] MEDS: FLUoxetine HCL 20 MG CAP PO SCH (08:22)
[2017-08-29] MEDS: CARISOPRODOL 350 MG TAB PO PRN (08:24)
[2017-08-29] MEDS: SODIUM CHLORIDE 0.9% FLUSH 10 ML FLUSH IV FLUSH SCH (08:25)
[2017-08-29 08:35] LABS: APTT (PATIENT) 44.9 SEC (24.3-30.1)
--- NOTE | 2017-08-29 09:04 | EKG ---
Date Performed: 08/29/2017 Time Performed: 01:39:52 PTAGE: 82 years EKG: Possible ectopic atrial bradycardia Inferior infarct - age undetermined Inferior ST elevati on, consider acute injury Possible anteroseptal infarct - age undetermined Lateral T wave changes may be due to myocardial ischemia Abnormal ECG PREVIOUS TRACING : 08/28/2017 14.22 DOCTOR: Shane Veliz Interpretating Date/Time 08/29/2017 09:02:42
--- NOTE | 2017-08-29 09:58 | EKG ---
Date Performed: 08/28/2017 Time Performed: 14:22:46 PTAGE: 82 years EKG: SINUS BRADYCARDIA ABNORMAL QRS-T ANGLE ABNORMAL ECG INTERPRETATION BASED ON A DEFAULT AGE O F 41 YEARS PREVIOUS TRACING : 04/17/2014 23.56 DOCTOR: Shane Veliz Interpretating Date/Time 08/29/2017 09:56:56
--- NOTE | 2017-08-29 10:32 | PD.CONS ---
Consult Service Palliative Care Consult Requested By Dr Don Primary Care Physician Kevin Bowles, Reason for Consultation a. To assist with evaluation and management of symptoms including: Chronic back pain b. To assist medical decision maker(s) with: better understanding of current medical conditions; weighing benefits/burdens of medical treatment options; making medical treatment decisions. HPI History of Present Illness 82-year-old patient presented to the ED on 08/28/17 via EMS after a witnessed syncopal event. Her daughter was assisting her with showering. She is not reported to have hit her head daughter reported she was "out "for a couple minutes. When EMS arrived she was initially hypotensive but this improved with IV fluid. Patient had no other complaints, limited history. * ED: Head CT with no acute process is notable for stable old right occipital lobe infarct. Old right MCA territory infarcts new since 2013 exam. CXR with no acute process. Troponin elevated 21.5. EKG with artifact but no STEMI criteria, sinus bradycardia 50s. Patient presented with 2 daughters who report patient with advanced dementia they help care for her. One daughter is reported POA. ED physician notes lengthy discussion with them they requested to keep full code , would want to proceed with further evaluation and hospital admission . They wish to talk with dog races manager regarding possibility of interventions. They did not want to talk with hospice. Patient was started on heparin after discussion with dog races manager. No reported chest pain. Patient admitted for further evaluation and management. * Cardiology consulted: Cardiology has concern that during episodes of unresponsiveness patient was likely hypotensive and it is not known if patient was breathing. Cardiology notes discussion with daughters about medical management versus invasive management daughters agreed to proceed with medical management due to advanced age and comorbidities including dementia. 2-D echo ordered. * Palliative care consulted by medical attending to assist with clarification of goals of treatment, as well to assist with management of chronic pain. Cardiac enzymes trending down though still elevated. Patient vital signs stable. Patient seen in room no visitors present. Nursing informs daughter left for a few hours. Patient is alert, pleasant, cooperative. She is oriented x1-2. She knows she is in the hospital she tells me she is here for her back pain. She does not have insight into other medical conditions or hospitalization. Able to state her correct date of , however she tells me her current age is 69. She is unable to name current year. She is able to name one daughter Ebony, tells me she has other children though unable to tell me how many or their names. She tells me she is originally from [place], and previously worked as a schoolteacher. ROS is negative except for she endorses some back pain, she is unable to give a number however when rating " small medium or large" tells me a medium amount of pain. 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 She is originally from [place] Patient had a total of 7 children, 2 biological children the other 5 were stepchildren. Patient biological daughter Ebony is local she lives with patient. Patient lost biological son in a car accident. Patient lost another stepdaughter to cancer.] Following exam call to alicia Beck. . Function/Cognitive Trajectory Lives at home with daughter-dependent for all care. Able to make some needs known such as hunger. Still ambulatory short distances room to room with walker and daughter standby assist. Progressive dementia For the past several years. . Review of Systems ROS Limitations: Poor Historian (ROS essentially negative except for back pain though patient noted to be a poor historian secondary to dementia) Constitutional: COMPLAINS OF: Pain (back pain), DENIES: Fever, Change in appetite Eyes: COMPLAINS OF: Vision loss (legally blind) Ears, nose, mouth, throat: DENIES: Throat pain Respiratory: DENIES: Cough, Shortness of breath Cardiovascular: DENIES: Chest pain Gastrointestinal: DENIES: Nausea, Vomiting, Dyspepsia or heartburn Musculoskeletal: COMPLAINS OF: Joint pain (hip, chronic), Back pain (chronic) Integumentary: DENIES: Rash Neurologic: DENIES: Headache Psychiatric: COMPLAINS OF: Anxiety (per daughter), Confusion (chronic per daughter) Past Family Social History Coded Allergies: No Known Allergies (Verified Allergy, Unknown, 08/28/17) Past Medical History Legally blind, left eye enucleation Osteoarthritis severe Anxiety Depression High cholesterol Advanced dementia Irritable bowel Alzheimer's dementia Glaucoma Chronic headaches Chronic urinary issues Hypertension History of kidney stones History of multiple back and hip surgeries . Past Surgical History Legally blind--Left eye surgery at 5 years old enucleation Total abdominal hysterectomy Left hip surgery with multiple revisions Several back surgeries up to 16 Reported Medications Morphine 5 mg/5 ml-0.9% NaCl (Morphine Sulfate/0.9% NaCl/Pf) 5 Mg/5 Ml (1 Mg/Ml ) Syringe 15 Mg PO BID Fentanyl Patch 72 HR (Fentanyl) 75 Mcg/Hr Patch 25 Mcg T-DERMAL Q72H Remove old patch when new one placed. Losartan (Losartan Potassium) 25 Mg Tab 25 Mg PO DAILY Alprazolam 0.5 Mg Tab 0.5 Mg PO Q4H PRN Soma (Carisoprodol) 350 Mg Tab 350 Mg PO BID PRN Fluoxetine (Fluoxetine HCl) 20 Mg Capsule 40 Mg PO DAILY . Current Medications Medications (Trade) Dose Ordered Sig/Roverto Route Start Time Stop Time Status Last Admin (Heparin Inj) 5,000 units UNSCH PRN IV 08/28/17 23:15 (Heparin Inj) 2,500 units UNSCH PRN IV 08/28/17 23:15 08/28/17 18:31 Heparin Sodium/ Dextrose 250 ml @ 10 mls/hr TITRATE PRN IV 08/28/17 17:15 08/28/17 18:34 (Xanax) 0.5 mg Q4H PRN PO 08/28/17 18:00 (Soma) 350 mg BID PRN PO 08/28/17 18:00 08/29/17 08:24 (Duragesic 75 Mcg Patch.72 Hr) 1 patch Q72H T-DERMAL 08/28/17 20:00 (PROzac) 40 mg DAILY PO 08/29/17 09:00 08/29/17 08:22 (Cozaar) 25 mg DAILY PO 08/29/17 09:00 08/29/17 08:20 Sodium Chloride 1,000 ml @ 100 mls/hr Q10H IV 08/28/17 18:00 08/28/17 18:00 (NS Flush) 2 ml UNSCH PRN IV FLUSH 08/28/17 18:00 (NS Flush) 2 ml BID IV FLUSH 08/28/17 21:00 08/28/17 22:31 (Tylenol) 650 mg Q4H PRN PO 08/28/17 18:00 (Zofran Inj) 4 mg Q6H PRN IVP 08/28/17 18:00 (Compazine Supp) 25 mg Q12H PRN RECTAL 08/28/17 18:00 (Tylenol) 650 mg Q6H PRN PO 08/28/17 18:00 (Percocet 5-325 Mg) 1 tab Q6H PRN PO 08/28/17 18:00 (Percocet 10-325 Mg) 1 tab Q6H PRN PO 08/28/17 18:00 (Morphine Inj) 2 mg Q3H PRN IV PUSH 08/28/17 18:00 (Morphine Inj) 4 mg Q3H PRN IV PUSH 08/28/17 18:00 (Morphine Inj) 4 mg Q1H PRN IV PUSH 08/28/17 18:00 (Morphine Inj) 4 mg Q3H PRN IV PUSH 08/28/17 18:00 (Narcan Inj) 0.4 mg UNSCH PRN IV PUSH 08/28/17 18:00 (Ginger-Colace) 1 tab BID PO 08/28/17 21:00 08/29/17 08:22 (Milk Of Magnesia Liq) 30 ml Q12H PRN PO 08/28/17 18:00 (Senokot) 17.2 mg Q12H PRN PO 08/28/17 18:00 (Dulcolax Supp) 10 mg DAILY PRN RECTAL 08/28/17 18:00 (Lactulose Liq) 30 ml DAILY PRN PO 08/28/17 18:00 Miscellaneous Information 1 Q3D T-DERMAL 08/28/17 20:00 (Oramorph Sr) 15 mg BID PO 08/28/17 21:00 08/29/17 08:21 (Norvasc) 5 mg DAILY PO 08/29/17 09:00 08/29/17 08:22 (Aspirin Chew) 81 mg DAILY CHEW 08/29/17 09:00 08/29/17 08:21 Family History Per EMR: Hypercholesterolemia. No family history of premature CAD or sudden cardiac Substance Use Tobacco: Nonsmoker Alcohol: One alcohol beverage daily Prescription med abuse: None reported Illicits: None reported . Psychosocial History Patient originally from [place]. Has lived in [place] for some time. . Has 7 children, 2 biological children. Daughter Ebony is local and cares for patient, lives with her. Son in a car accident. Another stepchild secondary to cancer. She does remain supported by other stepchildren. 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 . Spiritual/Cultural Factors No particular mosque affiliation, does not want government minister visits . Durable Power of Test Equipment Mechanic: Completed, but not made available Ethical and Legal Issues Due to advanced dementia and poor insight patient is unable to make her own decisions. Daughter indicates that she has full POA for patient. in absence of this documentation he is the only living biological child so she would be appropriate legal decision maker. Physical Exam Vital Signs Date Time Temp Pulse Resp B/P (MAP) Pulse Ox O2 Delivery O2 Flow Rate FiO2 08/29/17 04:00 98.2 65 20 125/59 (81) 97 08/29/17 00:00 98.5 62 20 138/76 (96) 97 08/28/17 20:00 98.7 52 20 144/79 (100) 97 08/28/17 20:00 65 08/28/17 18:57 08/28/17 18:37 52 16 171/70 (103) 98 Room Air 08/28/17 17:24 54 14 172/77 (108) 98 Room Air 08/28/17 15:50 51 16 185/80 (115) 97 Room Air 08/28/17 14:17 98 Room Air 08/28/17 14:15 97.6 53 14 183/84 (117) 99 Exam CONSTITUTIONAL/GENERAL: This is a thin elderly female. No apparent distress, pleasant and cooperative TUBES/LINES/DRAINS: Peripheral IV right upper extremity SKIN: No jaundice, rashes, or lesions. No wounds seen anteriorly. Skin warm/dry HEAD: Atraumatic. Normocephalic. EYES: Right eye deviates the center, left eye enucleation. No scleral icterus. No injection or drainage. Fundi not examined. ENT: Nose without bleeding or purulent drainage. Throat without visible erythema, exudates, masses, or lesions. NECK: Trachea midline. Supple, nontender. No palpable thyroid enlargement or nodularity. CARDIOVASCULAR: Regular rate and rhythm without murmur.No JVD. Peripheral pulses symmetric. RESPIRATORY/CHEST: Symmetric, unlabored respirations. On room air Clear to auscultation. Breath sounds equal bilaterally. GASTROINTESTINAL: Abdomen soft, flat, non-tender, nondistended. No hepato- splenomegaly, or palpable masses. No guarding. Bowel sounds normoactive GENITOURINARY: Without palpable bladder distension. Reported to void as needed MUSCULOSKELETAL: Extremities without clubbing, cyanosis, or edema. No joint tenderness or effusion noted. No mottling or clubbing. Left foot rigid, dropped , has some minimal flexion LYMPHATICS: No palpable cervical or supraclavicular adenopathy. NEUROLOGICAL: Awake and alert. Oriented x1-2. Little to no insight into conditions, hospitalization. Cooperative, Follows commands. Moves all 4 extremities. PSYCHIATRIC: No obvious anxiety/depression. no apparent hallucinations or other psychotic thought process. Diagnostic Tests Laboratory Laboratory Tests Test 08/28/17 14:10 08/28/17 14:40 08/28/17 17:45 08/28/17 21:47 White Blood Count 13.1 TH/MM3 (4.0-11.0) Red Blood Count 3.62 MIL/MM3 (4.00-5.30) Hemoglobin 12.2 GM/DL (11.6-15.3) Hematocrit 36.6 % (35.0-46.0) Mean Corpuscular Volume 101.2 FL (80.0-100.0) Mean Corpuscular Hemoglobin 33.6 PG (27.0-34.0) Mean Corpuscular Hemoglobin Concent 33.2 % (32.0-36.0) Red Cell Distribution Width 13.8 % (11.6-17.2) Platelet Count 262 TH/MM3 (150-450) Mean Platelet Volume 9.7 FL (7.0-11.0) Neutrophils (%) (Auto) 66.1 % (16.0-70.0) Lymphocytes (%) (Auto) 26.6 % (9.0-44.0) Monocytes (%) (Auto) 6.1 % (0.0-8.0) Eosinophils (%) (Auto) 0.4 % (0.0-4.0) Basophils (%) (Auto) 0.8 % (0.0-2.0) Neutrophils # (Auto) 8.7 TH/MM3 (1.8-7.7) Lymphocytes # (Auto) 3.5 TH/MM3 (1.0-4.8) Monocytes # (Auto) 0.8 TH/MM3 (0-0.9) Eosinophils # (Auto) 0.1 TH/MM3 (0-0.4) Basophils # (Auto) 0.1 TH/MM3 (0-0.2) CBC Comment DIFF FINAL Differential Comment Prothrombin Time 11.8 SEC (9.8-11.6) Prothromb Time International Ratio 1.1 RATIO Activated Partial Thromboplast Time 24.6 SEC (24.3-30.1) 27.6 SEC (24.3-30.1) Blood Urea Nitrogen 12 MG/DL (7-18) Creatinine 0.62 MG/DL (0.50-1.00) Random Glucose 125 MG/DL (74-106) Total Protein 6.6 GM/DL (6.4-8.2) Albumin 3.4 GM/DL (3.4-5.0) Calcium Level 7.9 MG/DL (8.5-10.1) Magnesium Level 1.8 MG/DL (1.5-2.5) Alkaline Phosphatase 58 U/L (45-117) Aspartate Amino Transf (AST/SGOT) 69 U/L (15-37) Alanine Aminotransferase (ALT/SGPT) 14 U/L (10-53) Total Bilirubin 0.3 MG/DL (0.2-1.0) Sodium Level 140 MEQ/L (136-145) Potassium Level 3.6 MEQ/L (3.5-5.1) Chloride Level 105 MEQ/L (98-107) Carbon Dioxide Level 23.9 MEQ/L (21.0-32.0) Anion Gap 11 MEQ/L (5-15) Estimat Glomerular Filtration Rate 92 ML/MIN (>89) Total Creatine Kinase 494 U/L (26-192) 352 U/L (26-192) Creatine Kinase MB 45.5 NG/ML (0.5-3.6) 25.6 NG/ML (0.5-3.6) Creatine Kinase MB % 9.2 % (0.0-4.0) 7.3 % (0.0-4.0) Troponin I 21.50 NG/ML (0.02-0.05) 9.75 NG/ML (0.02-0.05) Urine Color LIGHT-YELLOW (YELLW/STRAW) Urine Turbidity HAZY (CLEAR) Urine pH 7.0 (5.0-8.5) Urine Specific [place] 1.008 (1.002-1.035) Urine Protein NEG mg/dL (NEG-TRACE) Urine Glucose (UA) NEG mg/dL (NEG) Urine Ketones NEG mg/dL (NEG) Urine Occult Blood NEG (NEG) Urine Nitrite NEG (NEG) Urine Bilirubin NEG (NEG) Urine Urobilinogen LESS THAN 2.0 MG/DL (LESS Urine Leukocyte Esterase MOD (NEG) Urine RBC LESS THAN 1 /hpf (0-3) Urine WBC 1 /hpf (0-5) Urine Mucus FEW /lpf (OCC) Microscopic Urinalysis Comment CULT NOT INDICATED Test 08/28/17 23:53 08/29/17 02:33 08/29/17 08:14 Activated Partial Thromboplast Time 142.4 SEC (24.3-30.1) 77.7 SEC (24.3-30.1) 44.9 SEC (24.3-30.1) White Blood Count 9.2 TH/MM3 (4.0-11.0) Red Blood Count 3.41 MIL/MM3 (4.00-5.30) Hemoglobin 11.3 GM/DL (11.6-15.3) Hematocrit 33.7 % (35.0-46.0) Mean Corpuscular Volume 98.9 FL (80.0-100.0) Mean Corpuscular Hemoglobin 33.1 PG (27.0-34.0) Mean Corpuscular Hemoglobin Concent 33.5 % (32.0-36.0) Red Cell Distribution Width 13.2 % (11.6-17.2) Platelet Count 239 TH/MM3 (150-450) Mean Platelet Volume 9.2 FL (7.0-11.0) Neutrophils (%) (Auto) 55.9 % (16.0-70.0) Lymphocytes (%) (Auto) 36.4 % (9.0-44.0) Monocytes (%) (Auto) 6.7 % (0.0-8.0) Eosinophils (%) (Auto) 0.3 % (0.0-4.0) Basophils (%) (Auto) 0.7 % (0.0-2.0) Neutrophils # (Auto) 5.1 TH/MM3 (1.8-7.7) Lymphocytes # (Auto) 3.3 TH/MM3 (1.0-4.8) Monocytes # (Auto) 0.6 TH/MM3 (0-0.9) Eosinophils # (Auto) 0.0 TH/MM3 (0-0.4) Basophils # (Auto) 0.1 TH/MM3 (0-0.2) CBC Comment DIFF FINAL Differential Comment Blood Urea Nitrogen 11 MG/DL (7-18) Creatinine 0.47 MG/DL (0.50-1.00) Random Glucose 97 MG/DL (74-106) Total Protein 6.3 GM/DL (6.4-8.2) Albumin 3.4 GM/DL (3.4-5.0) Calcium Level 8.4 MG/DL (8.5-10.1) Phosphorus Level 2.9 MG/DL (2.5-4.9) Magnesium Level 1.9 MG/DL (1.5-2.5) Alkaline Phosphatase 64 U/L (45-117) Aspartate Amino Transf (AST/SGOT) 46 U/L (15-37) Alanine Aminotransferase (ALT/SGPT) 18 U/L (10-53) Total Bilirubin 0.4 MG/DL (0.2-1.0) Sodium Level 141 MEQ/L (136-145) Potassium Level 3.0 MEQ/L (3.5-5.1) Chloride Level 104 MEQ/L (98-107) Carbon Dioxide Level 30.4 MEQ/L (21.0-32.0) Anion Gap 7 MEQ/L (5-15) Estimat Glomerular Filtration Rate 127 ML/MIN (>89) Total Creatine Kinase 245 U/L (26-192) Creatine Kinase MB 16.6 NG/ML (0.5-3.6) Creatine Kinase MB % 6.8 % (0.0-4.0) Troponin I 11.10 NG/ML (0.02-0.05) Free Thyroxine 0.84 NG/DL (0.76-1.46) Thyroid Stimulating Hormone 3rd Gen 2.410 uIU/ML (0.358-3.740) Result Diagram: 08/29/17 0233 08/29/17 0233 Imaging Last Impressions Head CT 08/28/17 5603 Signed Impressions: Service Date/Time: Monday, August 28, 2017 14:29 - CONCLUSION: 1. No acute intracranial abnormality. 2. 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 3. 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 4. Senescent changes. James Schreiber MD Chest X-Ray 08/28/17 1409 Signed Impressions: Service Date/Time: Monday, August 28, 2017 14:56 - CONCLUSION: 1. No acute abnormality or significant interval change. James Schreiber MD Patient/Family Conference Present at Family Conference: Alicia Beck Family Conference Location: Telephone Issues Discussed: Call to alicia Beck spoke with her at length regarding the following: * Palliative care role, purpose, approach * Additional medical, psychosocial, and spiritual history * Patients general health, functional status, and cognitive changes in the months leading up to the current hospitalization * Patient/family understanding of the current medical problems * Patient/family understanding of prognosis; review that given recent cardiac events patient does remain high risk for ongoing and future events which can continue to cause decline secondary to cardiac and neurological sequelae; patient high risk for secondary to. * Patients goals of care as best understood from advance directives and/or conversations and/or values * Current medical treatment options and benefits/burdens of those options * Legal decision makers/HCS. Daughter indicates that she has full POA for patient. in absence of this documentation he is the only living biological child so she would be appropriate legal decision maker. * CODE STATUS- R endorse that she did discuss this with the ER physician though not at length. I fully reviewed risks/benefits/limitations. Patient remains full code now daughter will think about further and possibly talk with her stepsiblings * Likely scenarios comparing ongoing aggressive care with a transition to comfort measures only--very gently / briefly explore continued maximum medical management versus no code and comfort measures only * Questions answered to the best of my ability * Palliative care contact information provided Daughter is a bit overwhelmed as she is the primary caregiver for patient. Much exploration in review of underlying medical condition and limitations of maximize medical management at this time. Review patient high risk for further decline and events going forward. She indicates patient did not have a living will listing her wishes however family will continue to discuss patient wishes as conditions evolve. In terms of patient underlying pain much exploration of balance of pain relief with sedating effects of medications. Daughter amenable to monitor patient prn requirements over the next day or so before making additional adjustments regimen. Patient had formally been on 100 mics fentanyl patch about 6-10 months ago this was titrated down to 75 mics, than a few months after that 50 mics, and most recently about 3 months ago down to 25 mics , daughter informs primary medical doctor was attempted to decrease her dosing due to advanced age. For now goals are semi-aggressive short of invasive cardiovascular procedures; daughter is open to ongoing conversations as clinical course evolves. Assessment and Plan Disease Oriented Problem List: (1) NSTEMI (non-ST elevation myocardial infarction) (2) Syncope (3) Back pain, chronic (4) Alzheimer's dementia (5) Advanced dementia (6) Osteoarthritis (7) Anxiety (8) Depression (9) Hypertension (10) Blind Symptom Scale: (1) Pain 0-10 Scale: Unable to quantify Comment: Chronic back pain, severe osteoarthritis, status post multiple surgical interventions Pertinent Non-Medical Issues Psychosocial: Patient originally from [place]. Has lived in [place] for some time. . Has 7 children, 2 biological children. Alicia Beck is local and cares for patient, lives with her. Son in a car accident. Another stepchild secondary to cancer. She does remain supported by other stepchildren. 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 Spiritual: Patient with no particular spiritual affiliation does not want government minister visits, not mosque per daughter Legal: Daughter indicates that she has full POA for patient. in absence of this documentation he is the only living biological child so she would be appropriate legal decision maker. Ethical issues impacting care: No ethical issues identified . Important Contacts Alicia Finn [phone] . Prognosis This patient was admitted following syncopal episode, with findings of significantly elevated troponin, STEMI. Due to advanced age and advanced dementia not an ideal candidate for invasive procedures. High risk for further cardiovascular events and decline secondary to. May be appropriate for hospice if goals compatible. . Code Status: Full Code Plan * Legal decision maker: Due to advanced dementia and poor insight patient is unable to make her own decisions. Alicia Beck indicates that she has full POA for patient. in absence of this documentation he is the only living biological child so she would be appropriate legal decision maker. * Goals: Daughter amenable to monitor patient prn requirements over the next day or so before making additional adjustments regimen. Patient had formally been on 100 mics fentanyl patch about 6-10 months ago this was titrated down to 75 mics, than a few months after that 50 mics, and most recently about 3 months ago down to 25 mics, daughter informs primary medical doctor was attempted to decrease her dosing due to advanced age.For now goals are semi-aggressive short of invasive cardiovascular procedures; daughter is open to ongoing conversations as clinical course evolves. * CODE STATUS: Full code * SYMPTOMS: --Chronic back pain--history of multiple surgical interventions (15), as well as severe osteoarthritis. On fentanyl patch 75 mics every 72 hour, as well as oral morphine twice daily. She additionally uses Soma twice a day as needed in the home setting. Patient had formally been on 100 mics fentanyl patch about 6-10 months ago this was titrated down to 75 mics, than a few months after that 50 mics, and most recently about 3 months ago down to 25 mics , daughter informs primary medical doctor was attempted to decrease her dosing due to advanced age.Daughter amenable to monitor patient prn requirements over the next day or so before making additional adjustments regimen. Much discussion of balancing sedation with pain relief with daughter. Monitor PRN requirements/pain level over the next day or so, further titration pending requirements/family-pt goals. * Palliative care will continue to follow during hospital course as condition evolves, to assist patient/decision-maker with understanding of medical conditions, weighing benefits/burdens of treatment options, for clarification of goals of treatment. Additionally will assist with any symptoms of palliative concern . Time Spent Total Floor Time (mins): 60 (Chart review, PE, discussion with daughter, discussion with nurse) Thank you for the opportunity to participate in the care of Ms. Hardin. Attestation To help prompt me to consider important information that might be impacting today's encounter and assessment, information from prior notes written by myself or my colleagues may have been "brought forward" into today's note. My signature on this note, however, is an attestation that I personally performed the exam, history, and/or decision-making noted today, and, unless otherwise indicated, the interactions with patient, family, and staff as well as the review of records all occurred today. I also attest that the listed assessment and stated plan reflect my best clinical judgment today based on the combination of historical information, prior notes, and today's exam/ interactions. When time spent is documented, it refers only to time spent today by the signer, or if indicated, combined time spent today by collaborating physician/nurse practitioner. Ann Felix Aug 29, 2017 10:32
[2017-08-29 12:44] LABS: HEMOGLOBIN A1a 1.3 %; HEMOGLOBIN A1b 0.7 %; HEMOGLOBIN Ao 87.2 %; HEMOGLOBIN F 0.8 %; HEMOGLOBIN LA1C 1.9 %; HEMOGLOBIN P3 4.7 %
[2017-08-29] MEDS: SODIUM CHLOR 0.9% 1000 ML INJ 1,000 ML IV SCH (12:50)
--- NOTE | 2017-08-29 14:49 | HHI.PR ---
Subjective Remarks Nursing denies any deterioration since last night. Patient herself denies any chest pain nausea or vomiting currently. She does vocalize wanting to just proceed with medical management at this time. Objective Vital Signs Date Time Temp Pulse Resp B/P (MAP) Pulse Ox O2 Delivery O2 Flow Rate FiO2 08/29/17 11:45 98.2 68 18 121/67 (85) 08/29/17 09:30 17 08/29/17 09:30 17 08/29/17 04:00 98.2 65 20 125/59 (81) 97 08/29/17 00:00 98.5 62 20 138/76 (96) 97 08/28/17 20:00 98.7 52 20 144/79 (100) 97 08/28/17 20:00 65 08/28/17 18:57 08/28/17 18:37 52 16 171/70 (103) 98 Room Air 08/28/17 17:24 54 14 172/77 (108) 98 Room Air 08/28/17 15:50 51 16 185/80 (115) 97 Room Air I/O 08/28/17 08/28/17 08/28/17 08/29/17 08/29/17 08/29/17 06:59 14:59 22:59 06:59 14:59 22:59 Intake Total 30 ml 218 ml 1000 ml Balance 30 ml 218 ml 1000 ml Intake Oral 180 ml IV Total 30 ml 38 ml 1000 ml # Voids 3 Result Diagram: 08/29/1723208/29/173 Objective Remarks Heart sounds demonstrated regular rate and rhythm Unlabored breathing, awake, no acute distress, sitting in bed A/P Assessment and Plan NSTEMI - Cardiology following, in conjunction with patient's and patient's daughter's wishes will proceed with medical management at this time - Continue aspirin, Lipitor, heparin - echo pending DEMENTIA HOME MEDS CHRONIC PAIN CONTINUE HOME MEDS AND IV PAIN CONTROL AND MUSCLE RELAXERS ANXIETY AND DEPRESSION CONTINUE HOME MEDICATIONS palliative care following. Tyshawn Knox MD Aug 29, 2017 14:49
[2017-08-29 14:52] LABS: APTT (PATIENT) 44.8 SEC (24.3-30.1)
--- NOTE | 2017-08-29 16:22 | PD.CARD.PN ---
Subjective Subjective Remarks No events overnight Feels well other than chronic back pain, no chest pain Objective Medications Current Medications Medications (Trade) Dose Ordered Sig/Roverto Route Start Time Stop Time Status Last Admin (Heparin Inj) 5,000 units UNSCH PRN IV 08/28/17 23:15 (Heparin Inj) 2,500 units UNSCH PRN IV 08/28/17 23:15 08/28/17 18:31 Heparin Sodium/ Dextrose 250 ml @ 10 mls/hr TITRATE PRN IV 08/28/17 17:15 08/28/17 18:34 (Xanax) 0.5 mg Q4H PRN PO 08/28/17 18:00 (Soma) 350 mg BID PRN PO 08/28/17 18:00 08/29/17 08:24 (Duragesic 75 Mcg Patch.72 Hr) 1 patch Q72H T-DERMAL 08/28/17 20:00 (PROzac) 40 mg DAILY PO 08/29/17 09:00 08/29/17 08:22 (Cozaar) 25 mg DAILY PO 08/29/17 09:00 08/29/17 08:20 Sodium Chloride 1,000 ml @ 100 mls/hr Q10H IV 08/28/17 18:00 08/29/17 12:50 (NS Flush) 2 ml UNSCH PRN IV FLUSH 08/28/17 18:00 (NS Flush) 2 ml BID IV FLUSH 08/28/17 21:00 08/28/17 22:31 (Tylenol) 650 mg Q4H PRN PO 08/28/17 18:00 (Zofran Inj) 4 mg Q6H PRN IVP 08/28/17 18:00 (Compazine Supp) 25 mg Q12H PRN RECTAL 08/28/17 18:00 (Tylenol) 650 mg Q6H PRN PO 08/28/17 18:00 (Percocet 5-325 Mg) 1 tab Q6H PRN PO 08/28/17 18:00 (Percocet 10-325 Mg) 1 tab Q6H PRN PO 08/28/17 18:00 (Morphine Inj) 2 mg Q3H PRN IV PUSH 08/28/17 18:00 (Morphine Inj) 4 mg Q3H PRN IV PUSH 08/28/17 18:00 (Morphine Inj) 4 mg Q1H PRN IV PUSH 08/28/17 18:00 (Morphine Inj) 4 mg Q3H PRN IV PUSH 08/28/17 18:00 (Narcan Inj) 0.4 mg UNSCH PRN IV PUSH 08/28/17 18:00 (Ginger-Colace) 1 tab BID PO 08/28/17 21:00 08/29/17 08:22 (Milk Of Magnesia Liq) 30 ml Q12H PRN PO 08/28/17 18:00 (Senokot) 17.2 mg Q12H PRN PO 08/28/17 18:00 (Dulcolax Supp) 10 mg DAILY PRN RECTAL 08/28/17 18:00 (Lactulose Liq) 30 ml DAILY PRN PO 08/28/17 18:00 Miscellaneous Information 1 Q3D T-DERMAL 08/28/17 20:00 (Oramorph Sr) 15 mg BID PO 08/28/17 21:00 08/29/17 08:21 (Norvasc) 5 mg DAILY PO 08/29/17 09:00 08/29/17 08:22 (Aspirin Chew) 81 mg DAILY CHEW 08/29/17 09:00 08/29/17 08:21 (Lipitor) 40 mg HS PO 08/29/17 21:00 Vital Signs / I&O Vital Signs Date Time Temp Pulse Resp B/P (MAP) Pulse Ox O2 Delivery O2 Flow Rate FiO2 08/29/17 11:45 98.2 68 18 121/67 (85) 08/29/17 09:30 17 08/29/17 09:30 17 08/29/17 07:40 97.9 61 18 124/79 (94) 98 08/29/17 04:00 98.2 65 20 125/59 (81) 97 08/29/17 00:00 98.5 62 20 138/76 (96) 97 08/28/17 20:00 98.7 52 20 144/79 (100) 97 08/28/17 20:00 65 08/28/17 18:57 08/28/17 18:37 52 16 171/70 (103) 98 Room Air 08/28/17 17:24 54 14 172/77 (108) 98 Room Air I/O 11/21/17 11/2108/28/17 08/29/17 08/29/17 08/29/17 07:00 15:00 23:00 07:00 15:00 23:00 Intake Total 40 ml 208 ml 1000 ml Balance 40 ml 208 ml 1000 ml Intake Oral 180 ml IV Total 40 ml 28 ml 1000 ml # Voids 3 Physical Exam GENERAL: NAD, alert and awake SKIN: Warm and dry. HEAD: Atraumatic. Normocephalic. EYES: Pupils equal and round. No scleral icterus. No injection or drainage. ENT: No nasal bleeding or discharge. Mucous membranes pink and moist. NECK: Trachea midline. No JVD. CARDIOVASCULAR: Regular rate and rhythm. RESPIRATORY: No accessory muscle use. Clear to auscultation. Breath sounds equal bilaterally. GASTROINTESTINAL: Abdomen soft, non-tender, nondistended. Hepatic and splenic margins not palpable. MUSCULOSKELETAL: Extremities without clubbing, cyanosis, or edema. No obvious deformities. NEUROLOGICAL: Awake and alert. No obvious cranial nerve deficits. Motor grossly within normal limits. Five out of 5 muscle strength in the arms and legs. Normal speech. PSYCHIATRIC: Pleasantly demented Laboratory Laboratory Tests Test 08/28/17 17:45 08/28/17 21:47 08/28/17 23:53 08/29/17 02:33 Activated Partial Thromboplast Time 27.6 SEC 142.4 SEC 77.7 SEC Total Creatine Kinase 352 U/L 245 U/L Creatine Kinase MB 25.6 NG/ML 16.6 NG/ML Creatine Kinase MB % 7.3 % 6.8 % Troponin I 9.75 NG/ML 11.10 NG/ML White Blood Count 9.2 TH/MM3 Red Blood Count 3.41 MIL/MM3 Hemoglobin 11.3 GM/DL Hematocrit 33.7 % Mean Corpuscular Volume 98.9 FL Mean Corpuscular Hemoglobin 33.1 PG Mean Corpuscular Hemoglobin Concent 33.5 % Red Cell Distribution Width 13.2 % Platelet Count 239 TH/MM3 Mean Platelet Volume 9.2 FL Neutrophils (%) (Auto) 55.9 % Lymphocytes (%) (Auto) 36.4 % Monocytes (%) (Auto) 6.7 % Eosinophils (%) (Auto) 0.3 % Basophils (%) (Auto) 0.7 % Neutrophils # (Auto) 5.1 TH/MM3 Lymphocytes # (Auto) 3.3 TH/MM3 Monocytes # (Auto) 0.6 TH/MM3 Eosinophils # (Auto) 0.0 TH/MM3 Basophils # (Auto) 0.1 TH/MM3 CBC Comment DIFF FINAL Differential Comment Blood Urea Nitrogen 11 MG/DL Creatinine 0.47 MG/DL Random Glucose 97 MG/DL Total Protein 6.3 GM/DL Albumin 3.4 GM/DL Calcium Level 8.4 MG/DL Phosphorus Level 2.9 MG/DL Magnesium Level 1.9 MG/DL Alkaline Phosphatase 64 U/L Aspartate Amino Transf (AST/SGOT) 46 U/L Alanine Aminotransferase (ALT/SGPT) 18 U/L Total Bilirubin 0.4 MG/DL Sodium Level 141 MEQ/L Potassium Level 3.0 MEQ/L Chloride Level 104 MEQ/L Carbon Dioxide Level 30.4 MEQ/L Anion Gap 7 MEQ/L Estimat Glomerular Filtration Rate 127 ML/MIN Free Thyroxine 0.84 NG/DL Thyroid Stimulating Hormone 3rd Gen 2.410 uIU/ML Test 08/29/17 08:14 08/29/17 14:10 Activated Partial Thromboplast Time 44.9 SEC 44.8 SEC Assessment and Plan Problem List: (1) NSTEMI (non-ST elevation myocardial infarction) ICD Codes: I21.4 - Non-ST elevation (NSTEMI) myocardial infarction Status: Acute (2) Syncope ICD Codes: R55 - Syncope and collapse Status: Acute (3) Alzheimer's dementia ICD Codes: G30.9 - Alzheimer's disease, unspecified (4) Advanced dementia ICD Codes: F03.90 - Unspecified dementia without behavioral disturbance (5) Hypertension ICD Codes: I10 - Essential (primary) hypertension Assessment and Plan 1) NSTEMI Drop off of troponin, possible Type 2 due to hypoxia during the event? Unsure if the patient was breathing per the daughter Per the daughters' wishes, will continue with medical management including blood pressure control Does not want invasive management for NSTEMI due to age, comorbidities and advanced dementia 2) Blood pressure control Blood pressure better at this time 3) If stable in the morning no further work up and can be discharged home If concerns over the holiday, please call covering physician 4) 2D echo pending Problem Qualifiers (1) Syncope: Qualified Codes: R55 - Syncope and collapse Rene Duncan DO Aug 29, 2017 16:22
[2017-08-29] MEDS ORDERED: REMOVE OLD DURAGESIC (FENTANYL) PATCH T-DERMAL SCH (20:00)
[2017-08-29] MEDS: fentaNYL 75 MCG/HR PATCH T-DERMAL SCH ×2 (20:00→20:50)
[2017-08-29] MEDS ORDERED: ATORVASTATIN 40 MG TAB PO SCH (21:00)
[2017-08-30] VITALS (18 sets, daily range): BP systolic 113–136; BP diastolic 66–80; PULSE 66–76; RESP 17–18; TEMP 97.9–98.6; O2SAT 95–96
[2017-08-30 04:35] LABS: APTT (PATIENT) 63.7 SEC (24.3-30.1)
[2017-08-30] MEDS: SODIUM CHLORIDE 0.9% FLUSH 10 ML FLUSH IV FLUSH SCH (09:00)
[2017-08-30] MEDS: LOSARTAN 25 MG TAB PO SCH (09:09)
[2017-08-30] MEDS: DOCUSATE SODIUM 50 MG/SENNA 8.6 MG TAB PO SCH (09:09)
[2017-08-30] MEDS: SODIUM CHLOR 0.9% 1000 ML INJ 1,000 ML IV SCH (09:09)
[2017-08-30] MEDS: amLODIPine BESYLATE 5 MG TAB PO SCH (09:10)
[2017-08-30] MEDS: FLUoxetine HCL 20 MG CAP PO SCH (09:10)
[2017-08-30] MEDS: MORPHINE SULFATE 15 MG CONTROLLED RELEASE TAB PO SCH (09:10)
[2017-08-30] MEDS: ASPIRIN 81 MG CHEW TAB CHEW SCH (09:10)
[2017-08-30] MEDS: CARISOPRODOL 350 MG TAB PO PRN (09:11)
[2017-08-30] MEDS ORDERED: fentaNYL 25 MCG/HR PATCH T-DERMAL SCH (11:00)
[2017-08-30] MEDS: HEPARIN-D5W 25,000 U/250 ML 250 ML IV PRN (11:46)
[2017-08-30 11:49] LABS: BICARBONATE 25.9 MEQ/L (21.0-32.0); POTASSIUM 3.7 MEQ/L (3.5-5.1)
--- NOTE | 2017-08-30 14:49 | ECHRPT ---
Indication: cp CONCLUSIONS Normal left ventricular size. Mild concentric left ventricular hypertrophy. [id number] mitral valve regurgitation. There is mild tricuspid valve regurgitation. The estimated pulmonary arterial pressure is 44.6 mmHg. BP: / HR: Rhythm: MEASUREMENTS (Male / Female) Normal Values Technical Quality:Good 2D ECHO LV Diastolic Diameter PLAX 3.6 cm 4.2 - 5.9 / 3.9 - 5.3 cm LV Systolic Diameter PLAX 2.5 cm IVS Diastolic Thickness 1.3 cm 0.6 - 1.0 / 0.6 - 0.9 cm LVPW Diastolic Thickness 1.5 cm 0.6 - 1.0 / 0.6 - 0.9 cm LV Relative Wall Thickness 0.8 RV Internal Dim ED PLAX 2.2 cm M-MODE Aortic Root Diameter MM 2.8 cm LA Systolic Diameter MM 2.9 cm LA Ao Ratio MM 1.0 AV Cusp Separation MM 1.6 cm DOPPLER Mitral E Point Velocity 45.4 cm/s Mitral A Point Velocity 77.5 cm/s Mitral E to A Ratio 0.6 LV E' Lateral Velocity 5.1 cm/s Mitral E to LV E' Lateral Ratio 9.0 LV E' Septal Velocity 6.3 cm/s Mitral E to LV E' Septal Ratio 7.2 TR Peak Velocity 294.0 cm/s TR Peak Gradient 34.6 mmHg Right Atrial Pressure 10.0 mmHg Pulmonary Artery Systolic Pressu 44.6 mmHg Right Ventricular Systolic Press 44.6 mmHg FINDINGS LEFT VENTRICLE The left ventricular systolic function is normal with an estimated ejection fraction in the range of 60-65%. Normal left ventricular size. Mild concentric left ventricular hypertrophy. RIGHT VENTRICLE Normal right ventricular size and systolic function. LEFT ATRIUM The left atrial size is normal. RIGHT ATRIUM The right atrial size is normal. ATRIAL SEPTUM Normal atrial septal thickness without atrial level shunting by limited color doppler interrogation. AORTA The aortic root and proximal ascending aorta are normal in size on limited imaging. MITRAL VALVE [id number] mitral valve regurgitation. Structurally normal mitral valve. AORTIC VALVE Trileaflet aortic valve. No aortic valve stenosis or regurgitation. TRICUSPID VALVE There is mild tricuspid valve regurgitation. Structurally normal tricuspid valve. The estimated pulmonary arterial pressure is 44.6 mmHg. PULMONARY VALVE No pulmonary valve regurgitation or stenosis. VESSELS The inferior vena cava is normal in size. PERICARDIUM No pericardial effusion. Channing Pruett MD (Electronically Signed) Final Date:30 August 2017 14:48
[2017-08-30] MEDS ORDERED: ATOR40TA16 PO (15:26)
[2017-08-30] MEDS ORDERED: ASPI81 CHEW (15:26)
--- NOTE | 2017-08-30 15:27 | HHI.DCPOC ---
Discharge Care Plan Diagnosis: (1) NSTEMI (non-ST elevation myocardial infarction) (2) Alzheimer's dementia (3) Back pain, chronic (4) Blind (5) Syncope Goals to Promote Your Health * To prevent worsening of your condition and complications * To maintain your health at the optimal level Directions to Meet Your Goals Take your medications as prescribed Follow your dietary instruction Follow activity as directed Keep your appointments as scheduled Take your immunizations and boosters as scheduled If your symptoms worsen call your PCP, if no PCP go to Urgent Care Center or Emergency Room Smoking is Dangerous to Your Health. Avoid second hand smoke Call the 24-hour hour crisis hotline for domestic abuse at Tyshawn Knox MD Aug 30, 2017 15:27
[2017-08-30] MEDS ORDERED: AMLO2.5T PO (15:30)
--- NOTE | 2017-08-30 15:39 | HHI.PR ---
Subjective Remarks Nursing denies any deterioration since last night. Patient herself denies any chest pain nausea or vomiting currently. Objective Vital Signs Date Time Temp Pulse Resp B/P (MAP) Pulse Ox O2 Delivery O2 Flow Rate FiO2 08/30/17 13:32 16 08/30/17 12:00 69 08/30/17 11:45 97.9 68 17 113/69 (84) 95 08/30/17 11:00 72 08/30/17 10:15 16 08/30/17 10:15 16 08/30/17 10:00 74 08/30/17 09:00 68 08/30/17 08:00 66 08/30/17 07:58 97.9 70 18 130/80 (97) 96 08/30/17 07:00 72 08/30/17 04:20 98.2 69 18 123/66 (85) 96 08/30/17 04:00 70 08/30/17 03:00 75 08/30/17 02:00 74 08/30/17 01:00 74 08/30/17 00:19 98.6 75 18 136/70 (92) 96 08/30/17 00:00 74 08/29/17 23:00 76 08/29/17 22:00 82 08/29/17 21:00 76 08/29/17 20:00 76 08/29/17 19:33 98.6 75 18 121/69 (86) 96 08/29/17 19:00 75 08/29/17 18:00 80 08/29/17 17:14 98 21 08/29/17 17:00 66 08/29/17 16:00 66 I/O 08/29/17 08/29/17 08/29/17 08/30/17 08/30/17 08/30/17 07:00 15:00 23:00 07:00 15:00 23:00 Intake Total 208 ml 1000 ml 460 ml 480 ml 1250 ml Balance 208 ml 1000 ml 460 ml 480 ml 1250 ml Intake Oral 180 ml 460 ml 480 ml IV Total 28 ml 1000 ml 1250 ml # Voids 3 3 2 Result Diagram: 08/29/17 0233 08/30/17 1107 Objective Remarks Heart sounds demonstrated regular rate and rhythm Unlabored breathing, awake, no acute distress, sitting in bed A/P Assessment and Plan NSTEMI - Per cardiology recommendations made yesterday, since the patient is clinically stable this morning, we will discharge her with aggressive medical management including good blood pressure control with newly added amlodipine as well as aspirin and Lipitor. We will hold off on beta blockers due to history of syncopal episodes. Daughter was extensively counseled that this was likely the most optimal choice based upon cardiology's recommendations since the patient is very elderly and has significant comorbidities that would put her at significant risk of complications if she was to undergo cardiac catheterization. Daughter did verbalize she supervises the patient 98% a time at home whenever she ambulates, and the patient doesn't he ambulate with walker otherwise she is pretty much in bed most of the time. I did have an extensive conversation with the patient's daughter about CODE STATUS in that she could compartment mentally customize CODE STATUS (DO NOT INTUBATE, DO NOT RESUSCITATE, compressions, ACLS drugs, etc.) She was appreciated of this insight and will take this into consideration after discussing with her family. Echo was unremarkable. Spent more than 30 min upon discharge. Tyshawn Knox MD Aug 30, 2017 15:39
[2017-09-02] MEDS ORDERED: REMOVE OLD DURAGESIC (FENTANYL) PATCH T-DERMAL SCH (11:00)
== END 2017-08-30 16:35 | disposition home or self-care (01) | DRG 281 ==
LOC: NEPE 13:51 → NEDA 16:20 → HCIS 19:01
PROVIDERS: ADMIT Hospitalist; ATTEND Hospitalist
DX: I21.4 Non-ST elevation (NSTEMI) myocardial infarction (principal); R64 Cachexia; Z68.1 Body mass index [BMI] 19.9 or less, adult; G30.9 Alzheimer's disease, unspecified; F02.80 Dementia in other diseases classified elsewhere, unspecified severity, without behavioral disturbance, psychotic disturbance, mood disturbance, and anxiety; I10 Essential (primary) hypertension; R55 Syncope and collapse; H40.9 Unspecified glaucoma; H54.62 Unqualified visual loss, left eye, normal vision right eye; G89.29 Other chronic pain; M54.9 Dorsalgia, unspecified; E78.00 Pure hypercholesterolemia, unspecified; M19.90 Unspecified osteoarthritis, unspecified site; F32.9 Major depressive disorder, single episode, unspecified; F41.9 Anxiety disorder, unspecified; Z96.642 Presence of left artificial hip joint
CPT/HCPCS: 70450; 71010; 76937; 80048; 80053; 81001; 82550; 82552; 83036; 83735; 84100; 84439; 84443; 84484; 85025; 85610; 85730; 93005; 93306; J1644; J7030